=== PATIENT | male | born 1965 | race Caucasian/White ===

== ENCOUNTER 2021-02-02 21:37 | Emergency (ER) | payer OTHER ==
[~2021-02-02] VITALS: Ht 175.3 cm; Wt 99.8 kg
--- NOTE | ~2021-02-02 | EMS ---
[address] [address] EMS Patient Care Report Name: SOFIE VAZQUEZ Room #: [facility] M.R.#: [id number] Admission: Attend Phys: Discharge: Date of : 65 Report #: [id number] THIS REPORT FOR: //name// Report Transmitted: 02/02/2021 21:16 EMS Care Summary [place], [place]/[facility] Incident [id number] @ 02/02/2021 21:12 Incident Location [address] Patient SOFIE VAZQUEZ Male, 55 Years 1965 Patient Address [address] [place] [phone] Patient History Asthma,Chronic Obstructive Pulmonary Disease (COPD),Hypertension (HTN),Surgery,Emphysema,Diverticulitis,Back Pain (Chronic), Patient Allergies No known allergies, Patient Medications Gabapentin, Propranolol, Lexapro, Albuterol, Chief Complaint HEADACHE Disposition Transported No Lights/[place] Dispatch Reason Headache Transported To [facility] Narrative DISPATCHED NON EMERGENCY ON A HEADACHE. 55 Y/O MALE SITTING ON BED APPEARING IN NO IMMEDIATE DISTRESS. GCS 15 AND A/OX4. CONSENTS FOR TX AND TRANSPORTATION. STATES THAT HE HAS HAD A HEADACHE WITH PAIN AT 8 AND HIGH BLOOD PRESSURE X2 DAYS. STAFF OF FACILITY STATES THAT HE WAS PRESCRIBED AND HAS BEEN TAKING BLOOD [address] [address] EMS Patient Care Report Name: SOFIE VAZQUEZ Room #: [facility]..#: [id number] Admission: Attend Phys: Discharge: Date of : 65 Report #: [id number] PRESSURE MEDICATION X2 DAYS BUT HIS BLOOD PRESSURES HAVE BEEN REMAINING HIGH. ASSISTED WITHOUT INCIDENT TO AMBULANCE. V/S'S OBTAINED. B/P IS INCREASED. TRANSPORTED TO [facility]. REASSESSED ENROUTE. REMAINS GCS 15 AND ALERT. V/S'S OBTAINED. B/P REMAINS INCREASED. PAIN REMAINS UNCHANGED AT 8. REPORT CALLED TO HOSPITAL. ASSISTED WITHOUT INCIDENT TO ER HOSPITAL BED 11. PT CARE TRANSFERRED TO ED RN. Initial Vitals @21:29P: 84,R: 18,BP: 163/95,Pain: 8/10,GCS: 15,CO: 0,SpO2: 95,Revised Trauma: 12, @21:22P: 80,R: 16,BP: 162/102,Pain: 8/10,GCS: 15,CO: 0,SpO2: 94,Revised Trauma: 12, Assessments @21:19MENTAL:Person Oriented,Time Oriented,Event Oriented,Place Oriented,SKIN:HEENT:Eyes: Left Pupil: 4-mm,Eyes: Right Pupil: 4-mm,Neck/Airway: No Abnormalities,LUNG SOUNDS:General: No Abnormalities,ABDOMEN:General: No Abnormalities,PELVIS//GI:EXTREMITIES:Left Arm: No Abnormalities,Right Arm: No Abnormalities,Left Leg: No Abnormalities,Right Leg: No Abnormalities,PULSE:NEURO: Impression Headache Procedures @21:19ALS AssessmentResponse: UnchangedSucceeded Timeline 21:09,Call Received 21:09,Dispatch Notified 21:12,Dispatched 21:13,En Route 21:16,On Scene 21:18,At Patient 21:19,ALS Assessment,Response: UnchangedSucceeded, 21:22,BP: 162/102 M,PULSE: 80,RR: 16 R,SPO2: 94 Ox,ETCO2: ,BG: ,PAIN: 8,GCS: 15, 21:23,Depart Scene 21:29,BP: 163/95 M,PULSE: 84,RR: 18 R,SPO2: 95 Ox,ETCO2: ,BG: ,PAIN: 8,GCS: 15, 21:35,At Destination 21:50,Call Closed Disclaimer v1.1 Copyright 2020 [employer] This EMS Care Summary contains data elements from the applicable legal record (which may be displayed differently). It [place] [address] EMS Patient Care Report Name: SOFIE VAZQUEZ Room #: [facility]..#: [id number] Admission: Attend Phys: Discharge: Date of : 65 Report #: [id number] information for the following purposes: continuity of care, clinical quality, and state data reporting. The complete legal record is available to ED staff and administrators of the receiving hospital in [employer]'s Patient Tracker. All data is provided "as is."
[~2021-02-02 21:37] MED LIST: BACTRIM DS TAB1 EACH PO; DUONEB 2.5-0.5 M3 ML INH; NEBULIZER MISCELL; PREDNISONE 20 M20 MG PO; VENTOLIN HFA 1818 GM INH
[2021-02-02 22:12] LABS: ABSOLUTE NEUTROPHILS 7.3 thou/uL (1.4-8.2); BASOPHILS 1.1 % (0.0-2.0); EOSINOPHILS 2.8 % (0.0-3.0); HEMATOCRIT 43.9 % (42.0-52.0); HEMOGLOBIN 14.2 gm/dL (14.0-18.0); LYMPHOCYTES 19.4 % (24.0-44.0); MCH 31.4 pg (26.0-34.0); MCHC 32.4 g/dL (28.0-37.0); MONOCYTES 7.1 % (1.0-8.0); PLATELET COUNT 244 thou/uL (150-400); POLYS 69.6 % (36.0-66.0); RBC 4.52 mil/uL (4.50-6.00); RDW 15.4 % (10.5-14.5); WBC 10.4 thou/uL (4.0-11.0)
[2021-02-02 22:18] LABS: ANION GAP 9 mmol/L (7-16); BUN 15 mg/dL (7-18); CALCIUM 8.7 mg/dL (8.5-10.1); CHLORIDE 103 mmol/L (98-107); CO2 25 mmol/L (21-32); CREATININE 0.8 mg/dL (0.7-1.3); GLUCOSE 110 mg/dL (74-106); SODIUM 137 mmol/L (136-145)
[2021-02-02 22:28] LABS: ALBUMIN 3.4 g/dL (3.4-5.0); LIPASE 221 U/L (73-393); SGOT 23 U/L (15-37); SGPT 40 U/L (16-63); TOTAL BILIRUBIN 0.2 mg/dL (0.2-1.0); TOTAL PROTEIN 6.5 g/dL (6.4-8.2); TROPONIN-I <0.06 ng/mL (<0.06)
[2021-02-02 23:52] VITALS: BP 123/76
--- NOTE | 2021-02-03 07:17 | EKG ---
[address] [address] ELECTROCARDIOGRAM REPORT Name: SOFIE VAZQUEZ Room #: [facility]#: [id number] Admission: 02/02/21 Attend Phys: Discharge: 02/03/21 Date of : 65 Report #: [id number] [facility] ED Test Date: 2021-02-02 Test Time: 22:12:45 Pat Name: SOFIE VAZQUEZ Department: Room: Gender: Director And Professor: : 1965 Requested By: Jagjit Levy Order Number: [id number] MD: Umesh Harman Measurements Intervals [place] Rate: 68 P: 22 DE: 154 QRS: 24 QRSD: 81 T: 47 QT: 385 QTc: 410 Interpretive Statements Sinus rhythm No previous ECG available for comparison Electronically Signed On 02-03-2021 7:17:41 CDT by Umesh Harman [email or web address] <ELECTRONICALLY SIGNED> By: Umesh Harman MD, [facility] 02/03/21 07 11 11 Umesh Harman MD, FACC /EPI
== END 2021-02-03 00:30 | disposition home or self-care (01) ==
LOC: ER 21:37
PROVIDERS: Emergency Medicine
DX: I10 Essential (primary) hypertension (principal); R51.9 Headache, unspecified; J44.9 Chronic obstructive pulmonary disease, unspecified; F17.210 Nicotine dependence, cigarettes, uncomplicated